=== PATIENT | female | born 1970 | race Caucasian/White ===

== ENCOUNTER → 2016-09-23 | Outpatient (CLI) | payer BC ==
[2016-09-23 10:06] LABS: Follicle Stimulating Hormone 4.1 mIU/mL
== END | disposition home or self-care (01) ==
LOC: LABWHC1 07:27
PROVIDERS: ATTEND Obstetrics & Gynecology
DX: F41.8 Other specified anxiety disorders (principal); R45.4 Irritability and anger; E03.9 Hypothyroidism, unspecified; E06.3 Autoimmune thyroiditis; R53.83 Other fatigue; R14.0 Abdominal distension (gaseous); R41.3 Other amnesia; M25.50 Pain in unspecified joint
CPT/HCPCS: 36415; 82670; 83001; 84403; 84436; 84443; 84481

== ENCOUNTER → 2017-01-14 | Outpatient (CLI) | payer BC ==
--- NOTE | 2017-01-14 11:50 | XR ---
EXAMINATION TYPE: XR pelvis AP view DATE OF EXAM: 01/14/2017 CLINICAL HISTORY: pain TECHNIQUE: Single view the pelvis is submitted. FINDINGS: No evidence for fracture, dislocation or bony lesion. Joint spaces are well-preserved. S I joints appear symmetric. IMPRESSION: 1. No acute fracture or dislocation seen. ICD 10 NO FRACTURE, INITIAL EVALUATION
== END | disposition home or self-care (01) ==
LOC: RADXRMAIN 10:54
PROVIDERS: ATTEND Physical Medicine & Rehabilitation
DX: S32.9XXA Fracture of unspecified parts of lumbosacral spine and pelvis, initial encounter for closed fracture (principal)
CPT/HCPCS: 72170

== ENCOUNTER → 2019-08-17 | Outpatient (CLI) | payer BC ==
[2019-08-17 10:15] LABS: HCT 42.8 % (34.0-46.0); MCH 33.7 pg (25.0-35.0); MCHC 32.7 g/dL (31.0-37.0); MCV 103.1 fL (80.0-100.0); Macrocytosis Slight; Platelet Count 325 k/uL (150-450); RBC 4.15 m/uL (3.80-5.40); RDW 12.4 % (11.5-15.5)
[2019-08-17 17:22] LABS: Chol/HDL Ratio 2.15; Cholesterol 159 mg/dL (0-200); Triglycerides <50.0 mg/dL (0.0-149.0)
[2019-08-17 17:30] LABS: Estradiol 37.7 pg/mL
[2019-08-17 17:31] LABS: Follicle Stimulating Hormone 8.3 mIU/mL
== END | disposition home or self-care (01) ==
LOC: LABWHC1 09:29
PROVIDERS: ATTEND Obstetrics & Gynecology
DX: E34.50 Androgen insensitivity syndrome, unspecified (principal); N95.1 Menopausal and female climacteric states; N95.9 Unspecified menopausal and perimenopausal disorder; G47.00 Insomnia, unspecified; R53.83 Other fatigue
CPT/HCPCS: 36415; 80061; 82670; 83001; 84402; 84403; 84443; 85027

== ENCOUNTER → 2019-09-16 | Outpatient (CLI) | payer BC ==
--- NOTE | 2019-09-17 11:13 | MM ---
Reason for exam: screening (asymptomatic). Last mammogram was performed 3 years and 1 month ago. History: Taking other hormone for 4 years. Physical Findings: A clinical breast exam by your physician is recommended on an annual basis and results should be correlated with mammographic findings. MG 3D Screening Mammo W/Cad Bilateral CC and MLO view(s) were taken. Prior study comparison: August 09, 2016, right breast MG work up mamm w CAD RT. August 01, 2016, bilateral MG screening mammo w CAD. The breast tissue is heterogeneously dense. This may lower the sensitivity of mammography. There is no discrete abnormality. ASSESSMENT: Negative, BI-RAD 1 RECOMMENDATION: Routine screening mammogram of both breasts in 1 year.
== END | disposition home or self-care (01) ==
LOC: RADMAMWWP 08:19
PROVIDERS: ATTEND Obstetrics & Gynecology
DX: Z12.31 Encounter for screening mammogram for malignant neoplasm of breast (principal)
CPT/HCPCS: 77063; 77067

== ENCOUNTER → 2020-12-24 | Outpatient (CLI) | payer BC ==
[2020-12-24 14:56] LABS: HCT 41.6 % (37.2-46.3); HGB 13.4 g/dL (12.0-15.0); MCH 32.7 pg (27.0-32.0); MCHC 32.2 g/dL (32.0-37.0); MCV 101.5 fL (80.0-97.0); Mean Platelet Volume 9.7 fL (9.5-12.2); Platelet Count 295 X 10*3/uL (140-440); RDW 13.3 % (11.5-14.5); WBC 4.99 X 10*3/uL (4.50-10.00)
[2020-12-24 19:46] LABS: African American GFR (CKD) 75.5 (60.0-200.0); Albumin 4.5 g/dL (3.80-4.90); Albumin/Globulin Ratio 2.25 (1.60-3.17); Anion Gap 8.7 mmol/L (4.00-12.00); Carbon Dioxide 27.3 mmol/L (21.6-31.8); Chol/HDL Ratio 3.03; LDL Cholesterol,Calculated 121.4 mg/dL (0.0-131.0); Non-African American GFR(CKD) 65.2 (60.0-200.0); Potassium 4.6 mmol/L (3.5-5.5); Total Bilirubin 0.3 mg/dL (0.2-1.2); Total Protein 6.5 g/dL (6.2-8.2); VLDL Calculation 14.6 mg/dL (5.00-40.00)
== END | disposition home or self-care (01) ==
LOC: LABWHC1 07:19
PROVIDERS: ATTEND Family Medicine
DX: Z00.00 Encounter for general adult medical examination without abnormal findings (principal)
CPT/HCPCS: 36415; 80053; 80061; 85027

== ENCOUNTER → 2021-10-19 | Outpatient (CLI) | payer BC ==
--- NOTE | 2021-10-20 11:03 | MM ---
Reason for exam: screening (asymptomatic). Last mammogram was performed 2 years and 1 month ago. History: Patient is postmenopausal. Taking other hormone for 6 years. Physical Findings: A clinical breast exam by your physician is recommended on an annual basis and results should be correlated with mammographic findings. MG 3D Screening Mammo W/Cad Bilateral CC and MLO view(s) were taken. Prior study comparison: September 16, 2019, bilateral MG 3d screening mammo w/cad. August 09, 2016, right breast MG work up mamm w CAD RT. There are scattered fibroglandular densities. There is no discrete abnormality. No significant changes when compared with prior studies. ASSESSMENT: Negative, BI-RAD 1 RECOMMENDATION: Routine screening mammogram of both breasts in 1 year.
== END | disposition home or self-care (01) ==
LOC: RADMAMWWP 15:57
PROVIDERS: ATTEND Obstetrics & Gynecology
DX: Z12.31 Encounter for screening mammogram for malignant neoplasm of breast (principal); Z78.0 Asymptomatic menopausal state
CPT/HCPCS: 77063; 77067

== ENCOUNTER → 2022-05-24 | Outpatient (CLI) | payer BC ==
--- NOTE | 2022-05-24 22:07 | MR ---
EXAMINATION TYPE: MR knee RT wo con DATE OF EXAM: 05/24/2022 COMPARISON: None. HISTORY: Outer PAIN IN RIGHT KNEE with locking and swelling for 1 month. TECHNIQUE: Multiplanar, multisequence imaging of the right knee is performed without IV contrast. FINDINGS: MEDIAL MENISCUS: Triangular-shaped increased signal posterior horn appears to extend to the inferior articular surface sagittal image 10. LATERAL MENISCUS: Anterior and posterior horns are intact without tear. CRUCIATE LIGAMENTS: The anterior and posterior cruciate ligaments are intact and unremarkable. COLLATERAL LIGAMENTS: The medial collateral ligament and lateral collateral ligament complex are inta ct. Some fluid signal surrounds medial collateral ligament coronal image 19. EXTENSOR MECHANISM: Visualized quadriceps and patellar tendons are intact. EFFUSION: There is moderate to large size suprapatellar joint effusion. POPLITEAL CYST: Small size popliteal/cadet cyst sagittal image 8. TRICOMPARTMENT SPACES: Fairly moderate tricompartment joint space loss with mild spurring. CARTILAGE: Chondromalacia patella with cartilaginous loss along the posterior patellar pole. Some car tilaginous loss medial tibiofemoral compartment BONE MARROW SIGNAL: Area of heterogeneous diminished T1 and increased T2 signal involving the distal medial femoral condyle coronal image 16 for reference. Additional area of diminished T1 and increased T2 signal inferior posterior patellar pole sagittal image 19. OTHER: No additional significant abnormality is appreciated. IMPRESSION: 1. At least Moderate tricompartment degenerative changes as detailed above. 2. Moderate to large-sized suprapatellar joint effusion. 3. Full-thickness tear posterior horn medial meniscus. 4. Mild MCL sprain. 5. Small sized popliteal cyst.
== END | disposition home or self-care (01) ==
LOC: RADMRIMAIN 06:33
PROVIDERS: ATTEND Orthopaedic Surgery
DX: M23.221 Derangement of posterior horn of medial meniscus due to old tear or injury, right knee (principal); M17.11 Unilateral primary osteoarthritis, right knee

== ENCOUNTER → 2023-01-14 | Outpatient (CLI) | payer BC ==
[2023-01-14 09:52] LABS: HCT 41.5 % (34.0-46.0); HGB 13.6 gm/dL (11.4-16.0); MCHC 32.7 g/dL (31.0-37.0); MCV 100.8 fL (80.0-100.0); Mean Platelet Volume 7.4; Platelet Count 264 k/uL (150-450); RBC 4.11 m/uL (3.80-5.40); RDW 12.5 % (11.5-15.5); WBC 3.8 k/uL (3.8-10.6)
[2023-01-15 09:27] LABS: ALT 33 U/L; AST 35 U/L; Albumin 4.5 d/dL; Alkaline Phosphatase 85 U/L; Blood Urea Nitrogen 15.1 mg/dL; Calcium 9.9 mg/dL; Carbon Dioxide 30.7 mmol/L; Chloride 105 mmol/L; Chol/HDL Ratio 3.75 Ratio; Globulin 2.5 d/dL; Glucose 84 mg/dL; LDL Cholesterol,Calculated 118.7 mg/dL; Potassium 4.4 mmol/L; Sodium 143 mmol/L; Total Bilirubin 0.3 mg/dL
[2023-01-16 10:22] LABS: African American GFR (CKD) 74.8; Non-African American GFR(CKD) 64.9
== END | disposition home or self-care (01) ==
LOC: LABWHC1 08:26
PROVIDERS: ATTEND Family Medicine
DX: Z00.00 Encounter for general adult medical examination without abnormal findings (principal)
CPT/HCPCS: 36415; 80053; 80061; 85027

== ENCOUNTER → 2023-11-30 | Outpatient (CLI) | payer OTHER ==
--- NOTE | 2023-12-01 13:35 | MM ---
Reason for Exam: Screening (asymptomatic). Last mammogram was performed 2 year(s) and 1 month(s) ago. Patient History: Menarche at age 15. First Full-Term at age 21. Postmenopausal. Risk Values: Allyson 5 year model risk: 0.9%. NCI Lifetime model risk: 6.9%. Prior Study Comparison: 08/09/2016 Right Diagnostic Mammogram, [facility]. 09/16/2019 Bilateral Screening Mammogram, [facility]. 10/19/2021 Bilateral Screening Mammogram, [facility]. Tissue Density: There are scattered areas of fibroglandular density. Findings: Analyzed By CAD. Right breast: There is no suspicious group of microcalcifications or new suspicious mass. Left breast: There is no suspicious group of microcalcifications or new suspicious mass. Overall Assessment: Negative, BI-RAD 1 Management: Screening Mammogram of both breasts in [address] [facility] will attempt to contact patient to return for supplemental views and ultrasound if indicated. Patient should continue monthly self-breast exams. A clinical breast exam by your physician is recommended on an annual basis. This exam should not preclude additional follow-up of suspicious palpable abnormalities. Note on Allyson scores and lifetime risk: 1. A Allyson score greater than 3% is considered moderate risk. If this is the case, consider specialist referral to assess eligibility for a risk reducing agent. 2. If overall lifetime risk for the development of breast cancer is 20% or higher, the patient may qualify for future screening with alternating mammogram and breast MRI. Electronically signed and approved by: Magdiel Juarez DO
== END | disposition home or self-care (01) ==
LOC: RADMAMWWP 11:00
PROVIDERS: ATTEND Family Medicine
DX: Z12.31 Encounter for screening mammogram for malignant neoplasm of breast (principal); Z78.0 Asymptomatic menopausal state
CPT/HCPCS: 77063; 77067